=== PATIENT | female | born 1990 | race Caucasian/White ===

== ENCOUNTER 2016-12-03 00:19 | Observation (INO) | payer SELFPAY ==
[2016-12-03 00:19] VITALS: BMI 35.2
[2016-12-03] MEDS ORDERED: LORAZEPAM 2 MG/ML VIAL ONE (00:39)
[2016-12-03] MEDS ORDERED: ZIPRASIDONE 20 MG VIAL IM ONE ×2 (00:39→00:45)
[2016-12-03] MEDS ORDERED: WATER 10 ML ONE (00:40)
[2016-12-03] MEDS ORDERED: LORAZEPAM 2 MG/ML VIAL IM ONE (00:45)
[2016-12-03] MEDS ORDERED: ONDANSETRON HCL 4 MG ODT TAB PO PRN (01:02)
[2016-12-03] MEDS ORDERED: IBUPROFEN 400 MG TAB PO PRN (01:02)
[2016-12-03] MEDS ORDERED: TEMAZEPAM 15 MG CAP PO PRN (01:02)
[2016-12-03] MEDS ORDERED: Docusate Sodium 100 MG CAP PO PRN (01:02)
[2016-12-03] MEDS ORDERED: GUAIFENESIN 200 MG/10 ML UDC PO PRN (01:02)
[2016-12-03] MEDS ORDERED: LORAZEPAM 1 MG TAB PO PRN (01:02)
[2016-12-03] MEDS ORDERED: MAGNESIUM HYDROXIDE 30 ML BOTTLE PO PRN (01:02)
[2016-12-03] MEDS ORDERED: ACETAMINOPHEN 325 MG/TAB TABLET PO PRN (01:04)
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
[2016-12-03 01:14] LABS: ALL NEG? YES; MDMA* NEG (NEGATIVE); METHAMPHETAMINES NEG (NEGATIVE); OXYCODONE NEG (NEGATIVE)
[2016-12-03 01:19] LABS: LEUKOCYTES/URINE NEG (NEGATIVE); NITRITE/URINE NEG (NEGATIVE); RBC/URINE 0-2 (0-5); URINE OCCULT BLOOD 1+ (NEG/TRACE); WBC/URINE 0-2 (0-5)
[2016-12-03 02:00] LABS: AUTOMATED BASOPHIL 0.5 % (0-2); AUTOMATED EOSINOPHIL 0.8 % (0-5); AUTOMATED LYMPH 34.6 % (17-44); AUTOMATED MONOCYTE 5.8 % (3-10); AUTOMATED NEUTROPHIL 58.3 % (45-76); MPV 8.1 fL (7.4-10.4)
[2016-12-03 02:28] LABS: BLOOD UREA NITROGEN 9 MG/DL (7-17); CALCIUM 8.9 MG/DL (8.4-10.2); CALCULATED OSMOLALITY 284 MOs/Kg (270-290); CHLORIDE 112 mEq/L (98-107); ETOH-MGDL 160 mg/dL; GLUCOSE 120 mg/dL (70-99); SODIUM LEVEL 148 mEq/L (137-146); TOTAL PROTEIN 7.2 G/DL (6.3-8.2)
--- NOTE | 2016-12-03 08:38 | EDTUNOTE ---
Initial Evaluation Apperance: Neat Attitude: Hostile, Guarded, Bizarre Mood: Angry Affect: Congruent w/ mood Insight: Poor Judgement: Poor Depressive Symptoms: Reports: Crying episodes, Hopelessness, Poor Concentration Anxiety Symptoms: Reports: Excessive Worries Manic/Hypomanic Symptoms: Reports: Expansive/irritable mood, Decreased Coping Skills, Racing Thoughts Delusion Description: Reports: Present, Paranoid Ideation Hallucination Type: Reports: Auditory Hallucinations Severity: Reports: Mild Hallucinations affecting more than one sensory system: Yes Recommend /or Refer: Involuntary Commitment <Balbina Foster E - Last Filed: 12/03/16 08:36> - SOAP Note SOAP Note: 12/03/1635 Day 1 S:26 y.o. F presented to ED for auditory hallucinations, self inflicted superficial lacerations, SI. Pt denies c/o this morning. O: Vital Signs: Temp:98.2 F HR: 98 BP: 106/56 RR: 18 Pox: 97%. Resting comfortably CTA RRR A: SI Auditory hallucinations Superficial lacerations P: Continue meds as directed for further stabilization. <Balbina Foster E - Last Filed: 12/03/16 08:36> - SOAP Note SOAP Note: No changes in clinical status or new information from previous documentation. Vital Signs: Temp:99.0 F HR: 97 BP: 109/53 RR: 18 Pox: 98%. Continue with current plan. PT STABLE FOR TRANSFER <Paola Arce C - Last Filed: 12/03/16 16:40> - SOAP Note Patient Problems: Active Problems Auditory hallucinations (Acute) R44.0 Suicidal behavior (Acute) R46.89 Superficial laceration (Acute) T14.8
[2016-12-03 08:56] VITALS: TEMP 99
[2016-12-03] MEDS ORDERED: NICOTINE 21 MG PATCH TOP SCH (09:00)
[2016-12-03 16:54] VITALS: BP 123/62; PULSE 70
--- NOTE | 2016-12-03 16:54 | TUDEPART ---
Disposition: Trans. to Other Hospital ([facility]) Condition: Stable Education/Counseling Given To: Patient Education/Counseling Given Regarding: Diagnosis, Treatment Follow-up / Referrals: Sourav Perry MD [Staff Physician] - One Week Decision to Transfer Time: 15:00 - Physical Exam Constitutional: Alert, Agitated, Uncooperative Oriented to: Time, Person, Place Last recorded Vital Signs: Last Vital Signs Temp 99.0 F 12/03/16 08:55 Pulse 97 12/03/16 12:00 Resp 18 12/03/16 12:00 BP 109/53 L 12/03/16 12:00 Pulse Ox 98 12/03/16 12:00 Oxygen Pulse Oxygen Saturation 98 O2 Device Room Air Oxygen Flow Rate Fraction of Inspired Oxygen ( FIO2) - HEENT Head: Normal ( normocephalic) Eye Exam: Normal (PERRL, EOMI, Sclera white) Oropharynx: Normal (Pharynx:Moist without exudate,Gums-no swelling) Nose: No Symptoms Reported (septum midline) - Respiratory/Cardiovascular Respiratory: Normal - CTA (BBS clear to auscultation without adventitious sounds ) Cardiovascular: Tachycardia - GI Auscultation: Normal (NABS) Palpation: Normal (Soft,No rebound or guarding, non distended) Tenderness: Non tender Reveles's Sign: Negative Rectal Exam: Deferred - Musculoskeletal Back: Normal (Non-Tender) Extremities: Radial Pulse (2+), Other (SUPERFICAL LACERATION NOTED TO LEFT WRIST , NO NEED FOR REPAIR AT THIS TIME. BLEEDING CONTROLLED.) - Integumentary Skin: Normal, Warm, Dry Lymphatics: Normal (no adenopathy) - Neurologic Memory Impaired: Normal Motor Function: Normal (Normal tone, Pulses 2+ No cyanosis or edema, FROM) Cranial Nerve: Normal (CN II-X11 intact sensation, strength 5/5) Cerebellar: Normal Mood Description: Agitated, Combative, Uncooperative Thought: Delusions, Flight of Ideas, Rambling Conversation Perception: Normal
== END 2016-12-03 16:40 | disposition short-term general hospital (02) ==
LOC: ED 00:19 → TUOBSINP 01:02 → EDINP 08:05
PROVIDERS: ADMIT Nurse Practitioner Family; ATTEND Nurse Practitioner Family
DX: S61.512A Laceration without foreign body of left wrist, initial encounter (principal); X78.9XXA Intentional self-harm by unspecified sharp object, initial encounter; R44.0 Auditory hallucinations
CPT/HCPCS: 36415; 80053; 80307; 81001; 81025; 85025; 86592; 96372; 99285; G0378; J2060; J3486; J3490; E0710